=== PATIENT | female | born 1985 | race Caucasian/White ===

== ENCOUNTER 2017-03-13 17:47 | Outpatient (CLI) | payer MEDICAID ==
[~2017-03-13] VITALS: Ht 165.1 cm; Wt 90.3 kg
[~2017-03-13 17:47] MED LIST: PRENAT PO
--- NOTE | 2017-03-13 19:30 | RADRPT ---
PROCEDURE: Obstetrical ultrasound for biophysical profile CLINICAL INDICATION: Biophysical profile. . TECHNIQUE: Obstetrical ultrasound of the uterus for biophysical profile. Transabdominal views are obtained. COMPARISON: 12/02/2016 FINDINGS: Single intrauterine gestation. Presentation: Cephalic. Placenta: Anterior. No evidence of placental abruption. No evidence of placenta previa. breathing movement = 2/2 tone = 2/2 motion = 2/2 JANNETH = 2/2 JANNETH = 12.7 cm heart rate: 144 beats per minute IMPRESSION: Single intrauterine gestation. Biophysical profile 12/16 RPTAT: AADD .Roger Cabrera MD, MD Date Time Electronically viewed and signed by .Roger Cabrera MD, on 03/13/2017 19:30 .B/
--- NOTE | 2017-03-13 19:32 | RADRPT ---
PROCEDURE: Obstetrical ultrasound CLINICAL INDICATION: Pre-term labor. TECHNIQUE: Transvaginal sonographic images of the uterus obtained after first trimester, greater than 14 weeks gestation. Single intrauterine gestation present. COMPARISON: A 12/02/2016 FINDINGS: Presentation: Cephalic Partially visualized placenta: Anterior IMPRESSION: Funneling of the internal cervical os is present with the closed portion of the cervix measuring 2.0 6 cm. RPTAT: AADD .Roger Cabrera MD, MD Date Time Electronically viewed and signed by .Roger Cabrera MD, on 03/13/2017 19:31 .B/
[2017-03-13 19:37] VITALS: BP 104/56; PULSE 73; RESP 20
--- NOTE | 2017-03-13 19:39 | RADRPT ---
PROCEDURE: Obstetrical ultrasound. CLINICAL INDICATION: , evaluation. Pelvic pain. TECHNIQUE: Transabdominal sonographic images of the uterus obtained after first trimester , greater than 14 weeks gestation. Single intrauterine gestation present. COMPARISON: 12/02/2016 FINDINGS: Single intrauterine gestation. There is a cephalic presentation. Measurements were made in order to determine age. The results are as follows: BPD = 36 weeks . day(s) HC = 37 weeks 0 day(s) AC = 38 weeks 0 day(s) FL = 37 weeks 3 day(s) JANNETH = 12.7 cm Heart rate = 144 beats per minute The placenta is anterior. There is no evidence for an abruption or placenta previa. Ovaries are not visualized. IMPRESSION: Single intrauterine gestation of approximately 37 weeks 3 days by ultrasound criteria. [place] estimated weight = 3284 g; 97+ percentile for gestational age of 34 weeks 0 days. RPTAT: AADD .Roger Cabrera MD, MD Date Time Electronically viewed and signed by .Roger Cabrera MD, on 03/13/2017 19:39 .B/
[2017-03-13] MEDS ORDERED: FERR134T PO (19:43)
[2017-03-13] MEDS ORDERED: CALC667C PO (19:44)
[2017-03-13] MEDS ORDERED: HYDROCODONE/APAP (5/325) TAB PO ONE (21:00)
--- NOTE | 2017-03-14 | PN ---
Triage Information Date/Time Mar 13, 2017 Reason for visit: Abd/pelvic pain Weeks of Gestation 34w /Para 5/4 Diabetes: none Hypertention: none Additional information Pt has had LLQ pain x 2+ months that has never gone away but is not more severe than it ever was. When seen at the clinic today and she mentioned it she was sent in to r/o labor/PTL. No bleeding or leaking. PMHx: none. PSHx: none. NKDA Objective Vital Signs Date Time Temp Pulse Resp B/P Pulse Ox O2 Delivery O2 Flow Rate FiO2 03/13/17 19:37 98.5 73 20 104/56 Room Air Heart Rate: 130's Heart Rate Comments Accels to 160 bpm. No decels. Exam Pt declined. Results/Medications Results 24 hrs Laboratory Tests Test 03/13/17 20:35 Membranes Rupture NEGATIVE Imaging Results VTX. Anterior placenta. CX 2.06 cm. BPP 8/8 JANNETH 12.7 cm. EFW 3284 grams 3W> dates. Disposition: Discharge Assessment/Plan A: IUP at 34 weeks. Left LLQ pain. P: D/C home. F/U in clinic in 2 weeks as scheduled.Pain should resolve after delivery. NETO ROMAN MD Mar 14, 2017 00:00
--- NOTE | 2017-03-14 01:12 | TRIAGE ---
OB Triage Datetime Report Generated by CPN: 03/14/2017 01:12 Datetime: 03/13/2017 23:48 Stage of : OB Triage Datetime: 03/13/2017 22:45 Stage of : OB Triage Heart Rate FHR Baseline Rate: 140 Monitor Mode: External US FHR Baseline Changes: No Baseline Change Variability: Moderate 6-25 bpm Accelerations: 15X15 Decelerations: None Category: Category I Pain Assessment Pain Scale: 9 Pain Presence: Constant Pain Type: Sharp Pain Location: Left Groin Datetime: 03/13/2017 22:37 Monitor Mode: External US Datetime: 03/13/2017 21:59 Stage of : OB Triage Monitor Mode: External Heart Rate FHR Baseline Rate: 130 Monitor Mode: External US Pain Assessment Pain Scale: 9 Pain Presence: Constant Pain Type: Sharp Pain Location: Left Groin Pain Relief Measures: Pain Medication Given Datetime: 03/13/2017 21:51 Vaginal Exam Membrane Status: Intact Datetime: 03/13/2017 21:09 Quality: Mild Pattern: Normal: <= 5 Contractions in 10 Minutes Resting Tone [place]: Relaxed Heart Rate FHR Baseline Rate: 125 Monitor Mode: External US FHR Baseline Changes: No Baseline Change Variability: Moderate 6-25 bpm Accelerations: 15X15 Decelerations: None Category: Category I Datetime: 03/13/2017 20:10 Stage of : OB Triage Labor Evaluation Frequency: 10-20 Monitor Mode: External Duration (sec)2399: 60-90 Quality: Mild Pattern: Normal: <= 5 Contractions in 10 Minutes Resting Tone [place]: Relaxed Contraction Comments: Pt denies feeling ucs Heart Rate FHR Baseline Rate: 130 Monitor Mode: External US FHR Baseline Changes: No Baseline Change Variability: Moderate 6-25 bpm Accelerations: 15X15 Decelerations: None Category: Category I Datetime: 03/13/2017 19:27 Stage of : OB Triage Maternal Assessment Level of Consciousness: Fully Conscious Headache: Denies Blurred Vision: No Respiratory Effort: Unlabored Nausea/Vomiting: Denies RUQ Epigastric Pain: Denies Facial Edema: None Monitor Mode: External Quality: Mild Pattern: Normal: <= 5 Contractions in 10 Minutes Resting Tone [place]: Relaxed Heart Rate FHR Baseline Rate: 130 Monitor Mode: External US Pain Assessment Pain Scale: 9 Pain Presence: Constant Pain Type: Sharp Pain Location: Left Groin Pain Assessment Comments: Pt states has had constant groin pain x several weeks Datetime: 03/13/2017 19:00 Time of Arrival: 03/13/2017 17:40 EGA: 34.0 Arrived By: Wheelchair Arrived From: Office Chief Complaint: sent from clinic to r/o ptl Movement: Present Contractions: Occasional Rupture of Membranes: Denies Vaginal Discharge: Present Recent Sexual Intercouse: Denies Abdominal Trauma: Not Applicable Patient Complaints: Other Provider Notified: Dr Penny Initial Plan: EFM,CVL,EFW,BPP
== END 2017-03-13 23:57 | disposition home or self-care (01) ==
LOC: OBT 17:47 → L-D 17:49 → OBT 23:57
PROVIDERS: ATTEND Obstetrics & Gynecology
DX: O26.893 Other specified pregnancy related conditions, third trimester (principal); Z3A.34 34 weeks gestation of pregnancy; R10.32 Left lower quadrant pain
CPT/HCPCS: 76815; 76817; 76818; 84112; Z7500; Z7610; G0463

== ENCOUNTER 2017-03-27 18:11 | Outpatient (CLI) | payer MEDICAID ==
[~2017-03-27] VITALS: Ht 165.1 cm; Wt 91.6 kg
[~2017-03-27 18:11] MED LIST changes: +CALC667C PO; +FERR134T PO
[2017-03-27 18:25] VITALS: BP 117/57; PULSE 73; RESP 18; Ht 165.1 cm; Wt 91.6 kg
--- NOTE | 2017-03-27 19:01 | RADRPT ---
PROCEDURE: US biophysical profile. CLINICAL INDICATION: Contractions. TECHNIQUE: Multiple sonographic images of the uterus were obtained. The images were revi ewed on a PACS workstation. COMPARISON: 03/13/2017. FINDINGS: There is a single live intrauterine gestation. heart rate is 136 beats per minute. The position is cephalic. The placenta is anterior grade II with no abruption or previa. The JANNETH is 9.5 cm. (Normal = 5-20 cm.) Breathing Movement: 2 Gross Body Movement: 2 Tone: 2 Qualitative Amniotic Fluid Volume: 2 TOTAL: 8 IMPRESSION: 1. The biophysical score is 8/8. RPTAT: QQ .Horace Holcomb MD, MD Date Time Electronically viewed and signed by .Horace Holcmob MD, on 03/27/2017 19:00 .R/
--- NOTE | 2017-03-27 20:22 | PN ---
Triage Information Date/Time Reason for visit: Abd/pelvic pain Weeks of Gestation 36 weeks /Para Objective Vital Signs Date Time Temp Pulse Resp B/P Pulse Ox O2 Delivery O2 Flow Rate FiO2 03/27/17 18:25 97.3 73 18 117/57 99 Room Air Heart Rate Comments reactive Contractions: >10 Minutes Apart Exam 50/-3 --> unchanged over 2 hours Results/Medications Imaging Results BPP 8/8, JANNETH 9.5cm Disposition: Discharge LARA CAPONE Mar 27, 2017 20:22
--- NOTE | 2017-03-27 20:31 | TRIAGE ---
OB Triage Datetime Report Generated by CPN: 03/27/2017 20:31 Datetime: 03/27/2017 18:56 Heart Rate FHR Baseline Rate: 145 Monitor Mode: External US FHR Baseline Changes: No Baseline Change Variability: Moderate 6-25 bpm Accelerations: 15X15 Decelerations: None Category: Category I Comments: toco and u/s adjusted Datetime: 03/27/2017 18:34 Vaginal Exam Dilatation (cms): 2.0 Effacement (%): 50 Station: -3 Exam By: cubil rnc Vaginal Bleeding: None Cervix, Consistency: Soft Cervix, Position: Posterior Presentation 'A': Cephalic Datetime: 03/27/2017 18:30 Stage of : OB Triage Time Provider Notified: 03/27/2017 18:39 Provider Notified: DR Henry Maternal Assessment Level of Consciousness: Fully Conscious DTR's/Clonus: DTRs 2+; No Clonus Headache: Denies Blurred Vision: No Respiratory Effort: Unlabored; Regular Rhythm; Equal Expansion Breath Sounds, Left: Clear and Equal Breath Sounds, Right: Clear and Equal Nausea/Vomiting: Denies RUQ Epigastric Pain: Denies Lower Extremities Edema: Bilateral Lower Extremities Degree: 1+ Upper Extremities Edema: None Degree: None Facial Edema: None Temperature Route: Oral Fall Risk Assessment History of Falling: (0) No Secondary Diagnosis: (0) No Ambulatory Aid: (0) Bedrest/Nurse Assist IV Therapy: (0) No Gait: (0) Normal/Bedrest/Immobile Mental Status: (0) Oriented to Own Ability Labor Evaluation Frequency: occ Monitor Mode: External Quality: Mild Pattern: Normal: <= 5 Contractions in 10 Minutes Resting Tone [place]: Relaxed Heart Rate FHR Baseline Rate: 145 Monitor Mode: External US Variability: Moderate 6-25 bpm Accelerations: 15X15 Decelerations: None Category: Category I Pain Assessment Pain Scale: 5 Pain Presence: Intermittent Pain Type: Pressure Pain Location: Abdomen Pain Relief Measures: Comfort Measures Datetime: 03/27/2017 18:28 Time of Arrival: 03/27/2017 18:28 Arrived By: Ambulatory Arrived From: Home Chief Complaint: vaginal pressure and lower abd pain Movement: Present Contractions: Occasional Time Contractions Began: 03/27/2017 10:00 Rupture of Membranes: Denies Vaginal Bleeding: None Vaginal Discharge: Denies Recent Sexual Intercouse: Denies Abdominal Trauma: Not Applicable Patient Complaints: Contractions Time Provider Notified: 03/27/2017 18:39 Provider Notified: Dr Henry Initial Plan: efm/ sve Datetime: 03/13/2017 19:00 EGA: 34.0
== END 2017-03-27 20:30 | disposition home or self-care (01) ==
LOC: OBT 18:11 → L-D 18:13 → OBT 20:30
PROVIDERS: ATTEND Obstetrics & Gynecology
DX: O26.893 Other specified pregnancy related conditions, third trimester (principal); Z3A.36 36 weeks gestation of pregnancy; R10.2 Pelvic and perineal pain
CPT/HCPCS: 76818; Z7500; G0463

== ENCOUNTER 2017-08-03 07:46 | Day surgery (SDC) | END 2017-08-03 12:30 | disposition home or self-care (01) ==